=== PATIENT | female | born 1970 | race Two or more races ===

== ENCOUNTER 2024-12-20 11:56 | Inpatient (IN) | payer BC, OTHER ==
[~2024-12-20] VITALS: Ht 172.7 cm; Wt 92.5 kg
[2024-12-20 12:21] LABS: Hematocrit 42.6 % (36.0-46.0); Hemoglobin 14.5 g/dL (12.2-16.2); Mean Corpuscular Hemoglobin 30.3 pg (28.0-32.0); Mean Corpuscular Volume 88.7 fL (80.0-100.0); Nucleated Red Blood Cells % 0.1 %
--- NOTE | 2024-12-20 12:22 | ECG ---
[facility] Test Date: 2024-12-20 Test Time: 12:06:55 Pat Name: KRISTOPHER LEE Department: [facility] ED Room: [address] [place] [address] Gender: F Buyer Assistant: CASSANDRA : 1970 Requested By: DIVINE PAYTON Order Number: [id number] Reading MD: Serg Souza Measurements Intervals [place] Rate: 111 P: 0 [place]: 0 QRS: 82 QRSD: 79 T: 32 QT: 345 QTc: 469 Interpretive Statements Atrial fibrillation Borderline T abnormalities, anterior leads Electronically Signed On 12-20-2024 17:02:12 PDT by Serg Souza Please click the below link to view image of tracing.
[2024-12-20 12:27] LABS: Potassium 3.9 mmol/L (3.5-5.1); Sodium 143 mmol/L (136-145)
[2024-12-20 12:28] LABS: Anion Gap 12 (5-15); Carbon Dioxide 22 mmol/L (20-31)
[2024-12-20 12:29] LABS: Calcium 9.4 mg/dL (8.7-10.4)
[2024-12-20 12:31] LABS: Chloride 109 mmol/L (98-107)
[2024-12-20 12:33] LABS: BUN/Creatinine Ratio 17.6 (10.0-20.0); Blood Urea Nitrogen 15 mg/dL (9-23); Glucose 100 mg/dL (74-106)
--- NOTE | 2024-12-20 12:48 | DVH ---
CHEST RADIOGRAPH Indication: sob Technique: XY CHEST PORTABLE Comparison: None FINDINGS: The cardiac silhouette is unremarkable. The lungs demonstrate no pulmonary airspace consolidation. Th e pulmonary vasculature is unremarkable. There is no pleural effusion. There is no pneumothorax. IMPRESSION: No pulmonary airspace consolidation.
--- NOTE | 2024-12-20 12:56 | ED.PDOC ---
HPI Comments 54 y/o F, with PMHx of AFib, presents to the ED for CC of chest pain. Patient states, she has been experiencing substernal chest pain with associated palpitations x1day. Chief Complaint: Chest Pain Time Seen by MD: 12:05 Reviewed Notes: Nurses Notes, Medications, Allergies Allergies: Uncoded Allergies: CECILIOIENFransisco (Allergy, Unknown, 12/20/24) Information Source: Patient Mode of Arrival: Ambulatory Severity: Moderate Timing: Days Duration: Since onset Prehospital treatment: None Location: Substernal Radiation: No Radiation Onset: At Rest Cardiac Risk Factors: None PE Risk Factors: None History of: None Modifying Factors: Nothing Associated Signs and Symptoms: None Past Medical History PAST MEDICAL HISTORY: AFIB Surgical History: Denies all surgeries MARINE METEOROLOGIST History: Denies all MARINE METEOROLOGIST Hx Family History Family History: Unknown Social History Smoker: Non-Smoker Alcohol: Denies ETOH Use Drugs: Denies Drug Use Lives In: Home Constitutional: denies: chills, diaphoresis, fatigue, fever, malaise, sweats, weakness, others EENTM: denies: blurred vision, double vision, ear bleeding, ear discharge, ear drainage, ear pain, ear ringing, eye pain, eye redness, hearing loss, mouth pain, mouth swelling, nasal discharge, nose bleeding, nose congestion, nose pain, photophobia, tearing, throat pain, throat swelling, voice changes, others Respiratory: denies: cough, hemoptysis, orthopnea, SOB at rest, shortness of breath, SOB with excertion, stridor, wheezing, others Cardiovascular: reports: chest pain, palpitations; denies: dizzy spells, diaphoresis, Dyspnea on exertion, edema, irregular heart beat, left arm pain, lightheadedness, PND, syncope, others Gastrointestinal: denies: abdomen distended, abdominal pain, blood streaked bowels, constipated, diarrhea, dysphagia, difficulty swallowing, hematemesis, melena, nausea, poor appetite, poor fluid intake, rectal bleeding, rectal pain, vomiting, others Genitourinary: denies: abnormal vagina bleeding, burning, dyspareunia, dysuria, flank pain, frequency, hematuria, incontinence, pain, , vagina discharge, urgency, others Neurological: denies: dizziness, fainting, headache, left sided numbness, left sided weakness, numbness, paresthesia, pre-existing deficit, right sided numbness, right sided weakness, seizure, speech problems, tingling, tremors, weakness, others Musculoskeletal: denies: back pain, gout, joint pain, joint swelling, muscle pain, muscle stiffness, neck pain, others Integumetry: denies: bruises, change in color, change in hair/nails, dryness, laceration, lesions, lumps, rash, wounds, others Allergic/Immunocompromised: denies: Difficulty Healing, Frequent Infections, Hives, Itching, others Hematologic/Lymphatic: denies: anemia, blood clots, easy bleeding, easy bruising, swollen glands, others Endocrine: denies: excessive hunger, excessive sweating, excessive thirst, excessive urination, flushing, intolerance to cold, intolerance to heat, unexplained weight gain, unexplained weight loss, others Psychiatric: denies: anxiety, bipolar disorder, depression, hopeless, panic disorder, schizophrenia, sleepless, suicidal, others All Other Systems: Reviewed and Negative Physical Exam General Appearance: Moderate Distress HEENT: Normal ENT Inspection, Pharynx Normal, TMs Normal Neck: Full Range of Motion, Non-Tender, Normal, Normal Inspection Respiratory: Chest Non-Tender, Lungs Clear, No Accessory Muscle Use, No Res piratory Distress, Normal Breath Sounds Cardiovascular: Irregular Breast Exam: Deferred Gastrointestinal: No Organomegaly, Non Tender, No Pulsatile Mass, Normal Bowel Sounds, Soft Genitalia: Deferred Pelvic: Deferred Rectal: Deferred Extremities: No calf tenderness, Normal capillary refill, Normal inspection, Normal range of motion, Non-tender, No pedal edema Musculoskeletal : Apperance: Normal Neurologic: Alert, epic director II-XII nml as Tested, No Motor Deficits, Normal Affect, Normal Mood, No Sensory Deficits Cerebellar Function: NOT DONE Reflexes: NOT DONE Skin: Dry, Normal Color, Warm Peripheral Pulses: 3+ Radial (R), 3+ Radial (L) Lymphatic: No Adenopathy Was a procedure done? Was a procedure done?: No CP Differential Dx Differential Diagnosis: A-fib, A-Flutter, Angina, Anxiety / Panic Attack, Atrial Dysrhythmia, Electrolyte Disorder Differential Diagnosis: Angina, Chest Wall Pain, Costochondritis, Esophageal reflux/spasm, Gastritis X-Ray, Labs, Meds, VS Vital Signs Date Time Temp Pulse Resp B/P (MAP) Pulse Ox O2 Delivery O2 Flow Rate FiO2 12/20/24 15:12 108 18 146/82 12/20/24 14:45 108 20 146/82 (103) 97 12/20/24 12:42 114 12/20/24 12:06 111 12/20/24 11:56 98.3 121 18 150/150 97 98.3 Lab Test 12/20/24 13:01 12/20/24 12:12 Range/Units Troponin I High Sensitivity < 3 L 3 L </=34 ng/L White Blood Count 10.7 4.4-10.8 10^3/uL Red Blood Count 4.80 4.0-5.20 10^6/uL Hemoglobin 14.5 12.2-16.2 g/dL Hematocrit 42.6 36.0-46.0 % Mean Corpuscular Volume 88.7 80.0-100.0 fL Mean Corpuscular Hemoglobin 30.3 28.0-32.0 pg Mean Corpuscular Hemoglobin Concent 34.2 32.0-36.0 g/dL Red Cell Distribution Width 13.8 11.8-14.3 % Platelet Count 258 140-450 10^3/uL Mean Platelet Volume 7.9 6.9-10.8 fL Neutrophils (%) (Auto) 77.7 37.0-80.0 % Lymphocytes (%) (Auto) 14.1 10.0-50.0 % Monocytes (%) (Auto) 7.5 0.0-12.0 % Eosinophils (%) (Auto) 0.3 0.0-7.0 % Basophils (%) (Auto) 0.4 0.0-2.0 % Neutrophils # (Auto) 8.3 1.6-8.6 10 ^3/uL Lymphocytes # (Auto) 1.5 0.4-5.4 10 ^3/uL Monocytes # (Auto) 0.8 0-1.3 10 ^3/uL Eosinophils # (Auto) 0 0-0.8 10 ^3/uL Basophils # (Auto) 0 0-0.2 10 ^3/uL Nucleated Red Blood Cells 0.1 % Sodium Level 143 136-145 mmol/L Potassium Level 3.9 3.5-5.1 mmol/L Chloride Level 109 H 98-107 mmol/L Carbon Dioxide Level 22 20-31 mmol/L Anion Gap 12 5-15 Blood Urea Nitrogen 15 9-23 mg/dL Creatinine 0.85 0.550-1.02 mg/dL Glomerular Filtration Rate Calc 81 >90 mL/min BUN/Creatinine Ratio 17.6 10.0-20.0 Serum Glucose 100 74-106 mg/dL Calcium Level 9.4 8.7-10.4 mg/dL Current Medications Medications (Trade) Dose Ordered Sig/Alexa Route Start Time Stop Time Status Last Admin Diltiazem HCl (Cardizem Injection) 10 mg ONCE ONCE IV 12/20/24 14:30 12/20/24 14:39 DC 12/20/24 15:11 Morphine Sulfate 4 mg ONCE ONCE IV 12/20/24 15:15 12/20/24 15:16 DC 12/20/24 15:12 Ondansetron HCl (Zofran) 4 mg ONCE ONCE IV 12/20/24 15:15 12/20/24 15:16 DC 12/20/24 15:12 [place] [address] Ph: [phone] DIAGNOSTIC IMAGING Diagnostic Imaging Report : [id number] Signed PATIENT: MARIANA LEECCT: [id number] UNIT: [id number] : 1970 LOC: ER ROOM / BED: / AGE / SEX: 54 / F ADM STATUS: REG ER SERVICE 1213 ORDERING PHYSICIAN: DIVINE PAYTON MD PROCEDURE(s): CXRP - CHEST PORTABLE REASON: sob ORDER NUMBER(s): [id number], ACCESSION NUMBER(s): [id number] CHEST RADIOGRAPH Indication: sob Technique: XY CHEST PORTABLE Comparison: None FINDINGS: The cardiac silhouette is unremarkable. The lungs demonstrate no pulmonary airspace consolidation. The pulmonary vasculature is unremarkable. There is no pleural effusion. There is no pneumothorax. IMPRESSION: No pulmonary airspace consolidation. ATED BY: JUAN ANTONIO HOLLIS MD DICTATED DATE/TIME: 12/20/241248 SIGNED BY: JUAN ANTONIO HOLLIS MD SIGNED DATE/TIME: 12/20/24 124 CC: Patient alert. She does have irregular pulse. EKG shows atrial fibrillation. Vitals stable. Chest x-ray reviewed does not show any acute process. New onset. Continues to have chest pain. Cardiac marker within normal limits. WBC within normal limits. Explained to the patient. Continue monitoring. Time of 1ST Reevaluation: 12:35 Reevaluation 1ST: Unchanged Patient Education/Counseling: Diagnosis, Treatment Family Education/Counseling: No Family Present SEPSIS Sepsis Screen Physician Orders Chest Portable (12/20/24 12:13) Urinalysis (12/20/24 12:13) Electrocardigram (12/20/24 13:36) Electrocardigram (12/20/24 14:36) Diphenhdramine Injection (Benadryl Injec (12/20/24 15:30) Vital Signs Date Time Temp Pulse Resp B/P (MAP) Pulse Ox O2 Delivery O2 Flow Rate FiO2 12/20/24 15:12 108 18 146/82 12/20/24 14:45 108 20 146/82 (103) 97 12/20/24 12:42 114 12/20/24 12:06 111 12/20/24 11:56 98.3 121 18 150/150 97 98.3 Laboratory Tests Test 12/20/24 12:12 White Blood Count 10.7 10^3/uL (4.4-10.8) Medications Medications Dose Ordered Sig/Alexa Route Start Time Stop Time Status Last Admin Dose Admin Diltiazem HCl 10 mg ONCE ONCE IV 12/20/24 14:30 12/20/24 14:39 DC 12/20/24 15:11 Morphine Sulfate 4 mg ONCE ONCE IV 12/20/24 15:15 12/20/24 15:16 DC 12/20/24 15:12 Ondansetron HCl 4 mg ONCE ONCE IV 12/20/24 15:15 12/20/24 15:16 DC 12/20/24 15:12 Departure 1 Departure Time of Disposition: 13:19 Impression: Primary Impression: Atrial fibrillation Qualified Codes: I48.0 - Paroxysmal atrial fibrillation Disposition: ADMITTED INPATIENT Admit to: Med Surg Condition: Guarded Critical Care Note Critical Care Time?: Yes (90 min-critical care time only) Stability Stability form required: No Heart Score Heart Score: Heart Score Response (Comments) Value History Slightly Suspicious 0 EKG Normal 0 Age 45-64 1 Risk Factors >3 or Hx ASHD 2 Troponin Normal limit 0 Total 3 I personally scribed for FITO,DIVINE MD ([email or web address]) on 12/20/24 at 12:56. Electronically submitted by Marilia Ochoa ([email or web address]). I personally scribed for DIVINE PAYTON MD ([email or web address]) on 12/20/24 at 12:58. Electronically submitted by Marilia Ochoa ([email or web address]). I personally scribed for DIVINE PAYTON MD ([email or web address]) on 12/20/24 at 13:00. Electronically submitted by Marilia Ochoa ([email or web address]). I personally scribed for DIVINE PAYTON MD ([email or web address]) on 12/20/24 at 13:06. Electronically submitted by Marilia Ochoa ([email or web address]). I personally scribed for DIVINE PAYTON MD ([email or web address]) on 12/20/24 at 15:22. Electronically submitted by Carmelo Meyers ([email or web address]). DIVINE PAYTON MD Dec 20, 2024 12:56
[2024-12-20] MEDS: dilTIAZem 25 MG/5 ML VIAL IV ONE (15:11)
[2024-12-20] MEDS: ONDANSETRON HCL 4 MG/2 ML VIAL IV ONE ×2 (15:12→18:01)
[2024-12-20] MEDS: MORPHINE SULFATE 4 MG/ML SYR/VIAL IV ONE (15:12)
[2024-12-20] MEDS: diphenhdrAMINE HCL 50 MG/1 ML VL ONE (15:21)
[2024-12-20] MEDS: diphenhdrAMINE HCL 50 MG/1 ML VL IV ONE (15:21)
[2024-12-20] MEDS ORDERED: hydrALAZINE HCL 20 MG/ML VL IV PRN (16:00)
[2024-12-20] MEDS ORDERED: NITROGLYCERIN 0.4 MG SL TAB SL PRN (16:00)
[2024-12-20] MEDS ORDERED: MORPHINE SULFATE INJ 2 MG/ml SYRG IV PRN (16:00)
--- NOTE | 2024-12-20 16:08 | DVHHP2 ---
Admitting Diagnosis: cp History of Present Illness HPI 54 F who comes to ER c/o CP that started earlier this AM. She describes it as substernal along with palpitations. When she arrived to the ER she was noted to be in atrial fibrillation with RVR HR 110-120s. Patient does not take any rate control meds or anticoagulation at home although she states she has a hx of afib. She remained in afib rvr with HR fluctuating between 90-130. She will be admitted for amio gtt protocol and cardiology evaluation with echo. Her cardiac enzymes are negative. She denies any associated SOB, n/v, diarrhea or other symptoms. Past Medical History Cardiac: AFIB, Hyperlipidemia Review of Systems Constitutional: No symptom reported Eyes: No symptom reported Cardiovascular: Chest Pain, Palpitations Gastrointestinal: No symptom reported Musculoskeletal: No symptom reported Psychiatric: No symptom reported Endocrine: No symptom reported H&P Exam Vital Signs Vital Signs Date Time Temp Pulse Resp B/P (MAP) Pulse Ox O2 Delivery O2 Flow Rate FiO2 12/20/24 15:12 108 18 146/82 12/20/24 14:45 97 12/20/24 11:56 98.3 98.3 General Appeara: Well developed Head Exam: Normal inspection Neck Exam: Non-tender Pulmonary/Respiratory: Normal inspection, Normal breath sounds Cardiovascular/Chest: Tachycardia, Irregularly irregular SEPSIS Sepsis Screen Date sepsis recognized/suspect: Dec 20, 2024 Time Sepsis recognized/suspect: 1156 Recent Procedure: No On Antibiotic Therapy: No Respiratory Rate >20: No Heart Rate >90: Yes Temp<36 C (96.8 F) or >38.3 C: No SBP <90 or MAP <65 mmHG: No New Acute Mental Status Change: No Is the patient on CPAP, BIPAP,: No Physician Orders Chest Portable (12/20/24 12:13) Urinalysis (12/20/24 12:13) Electrocardigram (12/20/24 13:36) Electrocardigram (12/20/24 14:36) Admit (12/20/24 15:56) Nitroglycerin Sublingual (Ntrostat Subli (12/20/24 16:00) Morphine Sulfate Injection (12/20/24 16:00) Stat Ekg For Chest Pain (12/20/24 15:56) Notify Md Of Changes From Base (12/20/24 15:56) Medical Customer Service Representative For 24 Hours (12/20/24 15:56) Emergency Dysrhythmia Protocol (12/20/24 15:56) Rhythm Strips Once Every Shift (12/20/24 15:56) Oxygen By Nasal Cannula (12/20/24 15:56) Complete Blood Count (12/21/24 04:00) Basic Metabolic Panel (12/21/24 04:00) Sequential Compression Device (12/20/24 15:56) Echo 2d Mode Cardiac Dop (12/20/24 15:56) *Consult Dr.Mukeshchandra Parker (12/20/24 15:56) Amiodarone Bolus Kit (Cordarone) (12/20/24 16:00) Amiodarone 360mg/200ml Premix (Nexterone (12/20/24 16:15) Amiodarone 360mg/200ml Premix (Nexterone (12/20/24 22:15) Enoxaparin Sodium (Lovenox) (12/20/24 22:00) Ondansetron Hcl (Zofran) (12/20/24 18:00) Hydralazine Injection (Apresoline Inject (12/20/24 16:00) Cardiac Diet-2gna,Lofat,Lochol (12/20/24 Dinner) Vital Signs Date Time Temp Pulse Resp B/P (MAP) Pulse Ox O2 Delivery O2 Flow Rate FiO2 12/20/24 15:12 108 18 146/82 12/20/24 14:45 108 20 146/82 (103) 97 12/20/24 12:42 114 12/20/24 12:06 111 12/20/24 11:56 98.3 121 18 150/150 97 98.3 Laboratory Tests Test 12/20/24 12:12 White Blood Count 10.7 10^3/uL (4.4-10.8) Medications Medications Dose Ordered Sig/Alexa Route Start Time Stop Time Status Last Admin Dose Admin Diltiazem HCl 10 mg ONCE ONCE IV 12/20/24 14:30 12/20/24 14:39 DC 12/20/24 15:11 10 MG Diphenhydramine HCl 25 mg ONCE ONCE IV 12/20/24 15:30 12/20/24 15:31 DC 9/17/25 15:21 25 MG Morphine Sulfate 4 mg ONCE ONCE IV 12/20/24 15:15 12/20/24 15:16 DC 12/20/24 15:12 4 MG Ondansetron HCl 4 mg ONCE ONCE IV 12/20/24 15:15 12/20/24 15:16 DC 12/20/24 15:12 4 MG Labs/Xrays Labs Test 12/20/24 13:01 12/20/24 12:12 Range/Units Troponin I High Sensitivity < 3 L </=34 ng/L White Blood Count 10.7 4.4-10.8 10^3/uL Red Blood Count 4.80 4.0-5.20 10^6/uL Hemoglobin 14.5 12.2-16.2 g/dL Hematocrit 42.6 36.0-46.0 % Mean Corpuscular Volume 88.7 80.0-100.0 fL Mean Corpuscular Hemoglobin 30.3 28.0-32.0 pg Mean Corpuscular Hemoglobin Concent 34.2 32.0-36.0 g/dL Red Cell Distribution Width 13.8 11.8-14.3 % Platelet Count 258 140-450 10^3/uL Mean Platelet Volume 7.9 6.9-10.8 fL Neutrophils (%) (Auto) 77.7 37.0-80.0 % Lymphocytes (%) (Auto) 14.1 10.0-50.0 % Monocytes (%) (Auto) 7.5 0.0-12.0 % Eosinophils (%) (Auto) 0.3 0.0-7.0 % Basophils (%) (Auto) 0.4 0.0-2.0 % Neutrophils # (Auto) 8.3 1.6-8.6 10 ^3/uL Lymphocytes # (Auto) 1.5 0.4-5.4 10 ^3/uL Monocytes # (Auto) 0.8 0-1.3 10 ^3/uL Eosinophils # (Auto) 0 0-0.8 10 ^3/uL Basophils # (Auto) 0 0-0.2 10 ^3/uL Nucleated Red Blood Cells 0.1 % Sodium Level 143 136-145 mmol/L Potassium Level 3.9 3.5-5.1 mmol/L Chloride Level 109 H 98-107 mmol/L Carbon Dioxide Level 22 20-31 mmol/L Anion Gap 12 5-15 Blood Urea Nitrogen 15 9-23 mg/dL Creatinine 0.85 0.550-1.02 mg/dL Glomerular Filtration Rate Calc 81 >90 mL/min BUN/Creatinine Ratio 17.6 10.0-20.0 Serum Glucose 100 74-106 mg/dL Calcium Level 9.4 8.7-10.4 mg/dL Assessment/Plan Primary Diagnosis 1) Afib RVR 2) HLD plan; admit tele, amio gtt protocol, cardio consult with echo, cardiac diet, therapeutic lovenox BID, AM labs, supportive care,will follow along Plan discussed with: Other (n) YI TERRAZAS MD Dec 20, 2024 16:08
--- NOTE | 2024-12-20 16:50 | ECG ---
[facility] Test Date: 2024-12-20 Test Time: 12:42:05 Pat Name: KRISTOPHER LEE Department: [facility] ED Room: [address] [place] [address] Gender: F Violin Teacher: BRET : 1970 Requested By: DIVINE PAYTON Order Number: [id number] Reading MD: Serg Souza Measurements Intervals [place] Rate: 114 P: 0 PA: 0 QRS: 81 QRSD: 78 T: 30 QT: 319 QTc: 440 Interpretive Statements Atrial fibrillation Borderline T wave abnormalities Electronically Signed On 12-20-2024 17:02:17 PDT by Segr Souza Please click the below link to view image of tracing.
[2024-12-20 16:54] LABS: INR 0.96 (0.9-1.15); Prothrombin Time 10.2 sec (9.3-11.8)
[2024-12-20 17:00] VITALS: PULSE 116; RESP 18; O2SAT 99
[2024-12-20] MEDS: AMIODARONE BOLUS KIT 100 ML IV ONE (17:00)
[2024-12-20] MEDS: METOPROLOL TARTRATE 25 MG TAB PO ONE (17:33)
[2024-12-20] MEDS: ENOXAPARIN SOD 100 MG/1 ML SYRINGE SC ONE (17:33)
[2024-12-20] MEDS: AMIODARONE 360mg/200mL PREMIX 200 ML IV ONE (17:33)
[2024-12-20 19:30] VITALS: RESP 18; O2SAT 96
[2024-12-20 20:09] LABS: Urine Protein, UAD Negative (Negative)
[2024-12-20] MEDS: diphenhdrAMINE HCL 50 MG/1 ML VL IV PRN (20:10)
[2024-12-20] MEDS: MORPHINE SULFATE 4 MG/ML SYR/VIAL IV PRN (20:11)
[2024-12-20] MEDS: AMIODARONE 360mg/200mL PREMIX 200 ML IV SCH (22:25)
--- NOTE | 2024-12-20 23:57 | DVHINCON2 ---
Date of service: Dec 20, 2024 Referring Physician Lavern Reason for Consultation A-fib RVR History of Present Illness This is a 54 year old female with a PMH of A-fib who presented to the ED with complaints of substernal chest pain onset this morning. Patient reports associated heart palpitations. Upon ED arrival she was noted to be in atrial fibrillation with RVR HR 110-120s. Patient does not take any rate control meds o r anticoagulation at home. She remained in afib rvr with HR fluctuating between 90-130. Patient started on Amiodarone drip. Troponin is negative. Chest x-ray showed NAD. Patient was admitted to the hospital. I am asked to consult on this patient Allergies: Uncoded Allergies: CODIENE (Allergy, Unknown, 12/20/24) Current Medications Current Medications Medications (Trade) Dose Ordered Sig/Alexa Route PRN Reason Start Time Stop Time Status Last Admin Nitroglycerin (Ntrostat Sublingual) 0.4 mg Q5MINP PRN SL FOR CHEST PAIN 12/20/24 16:00 Morphine Sulfate 2 mg Q30M PRN IV FOR CHEST PAIN 12/20/24 16:00 Amiodarone HCL/ Dextrose 200 ml @ 16.66 mls/ hr Q12H IV 12/20/24 22:15 Enoxaparin Sodium (Lovenox) 90 mg Q12H SC 12/21/24 06:00 Hydralazine HCl (Apresoline Injection) 10 mg Q4HP PRN IV sbp >160 12/20/24 16:00 Diphenhydramine HCl (Benadryl Injection) 25 mg Q6HP PRN IV FOR ITCHING 12/20/24 17:45 12/20/24 20:10 Morphine Sulfate 4 mg Q6HPRN PRN IV FOR CHEST PAIN 12/20/24 17:45 12/20/24 20:11 Review of Systems Constitutional: denies: chills, diaphoresis, fatigue, fever, malaise, sweats, weakness, others EENTM: denies: blurred vision, double vision, ear bleeding, ear discharge, ear drainage, ear pain, ear ringing, eye pain, eye redness, hearing loss, mouth pain, mouth swelling, nasal discharge, nose bleeding, nose congestion, nose pain, photophobia, tearing, throat pain, throat swelling, voice changes, others Respiratory: denies: cough, hemoptysis, orthopnea, SOB at rest, shortness of breath, SOB with excertion, stridor, wheezing, others Cardiovascular: reports: chest pain, palpitations; denies: dizzy spells, diaphoresis, Dyspnea on exertion, edema, irregular heart beat, left arm pain, lightheadedness, PND, syncope, others Gastrointestinal: denies: abdomen distended, abdominal pain, blood streaked bowels, constipated, diarrhea, dysphagia, difficulty swallowing, hematemesis, melena, nausea, poor appetite, poor fluid intake, rectal bleeding, rectal pain, vomiting, others Genitourinary: denies: abnormal vagina bleeding, burning, dyspareunia, dysuria, flank pain, frequency, hematuria, incontinence, pain, , vagina discharge, urgency, others Neurological: denies: dizziness, fainting, headache, left sided numbness, left sided weakness, numbness, paresthesia, pre-existing deficit, right sided numbness, right sided weakness, seizure, speech problems, tingling, tremors, weakness, others Musculoskeletal: denies: back pain, gout, joint pain, joint swelling, muscle pain, muscle stiffness, neck pain, others Integumetry: denies: bruises, change in color, change in hair/nails, dryness, laceration, lesions, lumps, rash, wounds, others Allergic/Immunocompromised: denies: Difficulty Healing, Frequent Infections, Hives, Itching, others Hematologic/Lymphatic: denies: anemia, blood clots, easy bleeding, easy bruising, swollen glands, others Endocrine: denies: excessive hunger, excessive sweating, excessive thirst, excessive urination, flushing, intolerance to cold, intolerance to heat, unexplained weight gain, unexplained weight loss, others Psychiatric: denies: anxiety, bipolar disorder, depression, hopeless, panic disorder, schizophrenia, sleepless, suicidal, others All Other Systems: Reviewed and Negative Vital Signs Vital Signs Date Time Temp Pulse Resp B/P (MAP) Pulse Ox O2 Delivery O2 Flow Rate FiO2 12/20/24 20:11 78 18 133/81 12/20/24 20:00 96 12/20/24 18:07 Nasal Cannula* 2 28 12/20/24 11:56 98.3 98.3 Physical Exam GENERAL: Alert and oriented x 3. No acute distress. EYES: PERRL, EOMI. Anicteric. HENT: Moist mucous membranes. LUNGS: Clear to auscultation bilaterally. CARDIOVASCULAR: Irregular rate and rhythm. ABDOMEN: Soft, nontender and nondistended. EXTREMITIES: No edema. NEUROLOGIC: No focal neurological deficits. SKIN: Warm, dry. Labs/Diagnostic Data Labs Test 12/20/24 13:01 12/20/24 12:13 12/20/24 12:12 Range/Units Troponin I High Sensitivity < 3 L </=34 ng/L Urine Color Colorless Yellow Urine Clarity Clear Clear Urine pH 5.0 5.0-9.0 Urine Specific [place] 1.008 1.001-1.035 Urine Protein Negative Negative Urine Ketones Negative Negative Urine Blood Negative Negative /uL Urine Nitrite Negative Negative Urine Bilirubin Negative Negative Urine Urobilinogen Normal Negative mg/dL Urine Leukocyte Esterase Trace Negative /uL Urine RBC <1 0 - 4 /hpf Urine Microscopic WBC 3 0-5 /HPF Urine Squamous Epithelial Cells Few <5 /hpf Urine Bacteria None seen None Seen /hpf Urine Glucose Normal Normal mg/dL White Blood Count 10.7 4.4-10.8 10^3/uL Red Blood Count 4.80 4.0-5.20 10^6/uL Hemoglobin 14.5 12.2-16.2 g/dL Hematocrit 42.6 36.0-46.0 % Mean Corpuscular Volume 88.7 80.0-100.0 fL Mean Corpuscular Hemoglobin 30.3 28.0-32.0 pg Mean Corpuscular Hemoglobin Concent 34.2 32.0-36.0 g/dL Red Cell Distribution Width 13.8 11.8-14.3 % Platelet Count 258 140-450 10^3/uL Mean Platelet Volume 7.9 6.9-10.8 fL Neutrophils (%) (Auto) 77.7 37.0-80.0 % Lymphocytes (%) (Auto) 14.1 10.0-50.0 % Monocytes (%) (Auto) 7.5 0.0-12.0 % Eosinophils (%) (Auto) 0.3 0.0-7.0 % Basophils (%) (Auto) 0.4 0.0-2.0 % Neutrophils # (Auto) 8.3 1.6-8.6 10 ^3/uL Lymphocytes # (Auto) 1.5 0.4-5.4 10 ^3/uL Monocytes # (Auto) 0.8 0-1.3 10 ^3/uL Eosinophils # (Auto) 0 0-0.8 10 ^3/uL Basophils # (Auto) 0 0-0.2 10 ^3/uL Nucleated Red Blood Cells 0.1 % Prothrombin Time 10.2 9.3-11.8 sec Prothrombin Time INR 0.96 0.9-1.15 Sodium Level 143 136-145 mmol/L Potassium Level 3.9 3.5-5.1 mmol/L Chloride Level 109 H 98-107 mmol/L Carbon Dioxide Level 22 20-31 mmol/L Anion Gap 12 5-15 Blood Urea Nitrogen 15 9-23 mg/dL Creatinine 0.85 0.550-1.02 mg/dL Glomerular Filtration Rate Calc 81 >90 mL/min BUN/Creatinine Ratio 17.6 10.0-20.0 Serum Glucose 100 74-106 mg/dL Calcium Level 9.4 8.7-10.4 mg/dL Assessment Afib with RVR. HLD. Plan/Recommendation I agree with your ongoing assessment and care of plan. Echocardiogram. IV Amiodarone. DVT prophylactics. IV Hydralazine for SBP > 160. Morphine for pain management. Nitro SL. Additional plan as per the hospital course. A total of 45 minutes was spent reviewing the patient record, examining the patient, making a diagnostic and therapeutic plan, discussing this plan with medical personnel, following up on diagnostic studies and following the patient for clinical stability excluding any and all procedures. At least 50% of this time was spent in direct, [id number] contact. Plan discussed with: Patient SUMAN MANLEY MD Dec 20, 2024 20:43
[2024-12-21] MEDS: ENOXAPARIN SOD 100 MG/1 ML SYRINGE SC SCH (05:54)
[2024-12-21 06:47] LABS: Chloride 106 mmol/L (98-107); Potassium 3.5 mmol/L (3.5-5.1); Sodium 140 mmol/L (136-145)
[2024-12-21 06:48] LABS: Anion Gap 8 (5-15); Carbon Dioxide 26 mmol/L (20-31)
[2024-12-21 06:53] LABS: BUN/Creatinine Ratio 13.5 (10.0-20.0); Blood Urea Nitrogen 10 mg/dL (9-23); Calcium 8.7 mg/dL (8.7-10.4); Glucose 102 mg/dL (74-106)
[2024-12-21 06:56] LABS: Hematocrit 35.8 % (36.0-46.0); Hemoglobin 12.4 g/dL (12.2-16.2); Mean Corpuscular Hemoglobin 30.9 pg (28.0-32.0); Mean Corpuscular Volume 89.1 fL (80.0-100.0); Nucleated Red Blood Cells % 0.0 %
[2024-12-21 09:53] VITALS: PULSE 104; O2SAT 96
--- NOTE | 2024-12-21 14:31 | DVH ---
Procedure: CT CT ANGIO CHEST CONTRAST Reason for study/Clinical History: R/O PE Comparison Study: None Exam Date: 12/21/2024 01:[address] Angio Chest with Contrast TECHNIQUE: Multiple axial CT images of chest was performed following intravenous contrast administrat ion and coronal reformatting was performed. 3-D/MIP images were obtained. Radiation Dose : CTDI volume is 26.64 mGy. Dose-length product is 939.87 mGy*cm FINDINGS: Pulmonary Arteries: There are no filling defects within main, lobar, segmental and visualized subsegm ental branch pulmonary arteries. There is normal dimensional of main PA. Lungs: Small left pleural effusion. There is no pneumothorax or pneumomediastinum. Aorta and Vasculature: There is normal caliber of thoracic aorta without evidence of aortic dissecti on, intramural hematoma or aneurysm. Lymph Nodes: There is no significant intrathoracic or axillary lymphadenopathy on CT size criteria. Lower Neck: Visualized portions of the thyroid gland are unremarkable. Mediastinum: Cardiomegaly. There is no pericardial effusion. The esophagus is unremarkable. Musculoskeletal: No aggressive focal bony lesions, acute fractures or dislocation. Chest wall: Unremarkable Partially visualized upper abdomen is grossly unremarkable. IMPRESSION: No evidence of acute or chronic pulmonary embolism. Cardiomegaly with CHF. Small left pleural effusion. END IMPRESSION: All CT scans at this medical facility are performed using dose modulation techniques as appropriate t o a performed exam including the following: Automated exposure control was utilized; adjustment of th e MA and/or KV according to patient size; and use of iterative reconstruction technique.
--- NOTE | 2024-12-21 15:04 | DVHPN2 ---
Progress Note - Dictate Date Seen: Dec 21, 2024 Medical Necessity Reason Pt with a Central, PICC or Fol: No Subjective Patient continues to note chest pain worse with inspiration. She also complains of palpitations. vital signs Vital Sign Date Time Temp Pulse Resp B/P (MAP) Pulse Ox O2 Delivery O2 Flow Rate FiO2 12/21/24 12:00 84 12/21/24 09:36 17 129/86 12/21/24 06:00 98 12/20/24 22:00 98.3 98.3 12/20/24 19:30 Nasal Cannula* 2 28 Total Intake and Output 12/20/24 12/20/24 12/21/24 15:00 23:00 07:00 Intake Total 66.66 ml 133.28 ml Balance 66.66 ml 133.28 ml medications Current Medications Medications Dose Ordered Sig/Alexa Route Start Time Stop Time Status Last Admin Dose Admin Nitroglycerin 0.4 mg Q5MINP PRN SL 12/20/24 16:00 Morphine Sulfate 2 mg Q30M PRN IV 12/20/24 16:00 Amiodarone HCL/ Dextrose 200 ml @ 16.66 mls/ hr Q12H IV 12/20/24 22:15 12/21/24 09:08 16.66 MLS/HR Enoxaparin Sodium 90 mg Q12H SC 12/21/24 06:00 12/21/24 05:54 90 MG Hydralazine HCl 10 mg Q4HP PRN IV 12/20/24 16:00 Diphenhydramine HCl 25 mg Q6HP PRN IV 12/20/24 17:45 12/21/24 09:07 25 MG Morphine Sulfate 4 mg Q6HPRN PRN IV 12/20/24 17:45 12/21/24 09:06 4 MG objective General appearance: No acute distress Respiratory: Lungs clear to auscultation. No wheezing, crackles Cardiovascular: Irregular rate and rhythm, no murmurs. No edema Abdomen: Soft, nondistended, nontender, bowel sounds present MSK: Normal range of motion. Neuro: Alert, no neurological deficits Psych: Appropriate mood and affect. laboratory and microbiology Laboratory Tests 12/21/24 05:57 Test 12/21/24 05:57 Range/Units Serum Glucose 102 74-106 mg/dL Assessment/Plan 1. Atrial Fibrillation with RVR 2. Chest Pain Plan: - Cardiology consulted, Dr. Brown - TTE ordered. Pending results - CT angio ordered due to pleuritic chest pain. Negative for PE. Imaging suggests underlying CHF. - Continue amiodarone drip. Goal pulse of 90-1 time - Lovenox for anticoagulation. Will transition to Eliquis on discharge. Discussed risks and benefits of Eliquis with patient. - Troponins negative for chest pain. Will continue to monitor. - Daily CBC and BMP - Full code Plan discussed with: Patient, Spouse HERO HERNANDEZ Dec 21, 2024 15:04
[2024-12-21] MEDS: IOHEXOL 350 MG/ML 100ML IJ ONE (16:23)
[2024-12-21 20:00] VITALS: PULSE 92; PULSE 98; RESP 18; O2SAT 95
[2024-12-21 21:10] VITALS: BP 123/72; PULSE 84; RESP 19; TEMP 98.1; O2SAT 91
--- NOTE | 2024-12-21 22:11 | DVHPN2 ---
Progress Note - Dictate Date Seen: Dec 21, 2024 Medical Necessity Reason Pt with a Central, PICC or Fol: No Subjective Patient was seen and evaluated in follow up. Patient is complaining of chest pressure. Patient is on Amiodarone drip. TSH 5.22. Telemetry reviewed. vital signs Vital Sign Date Time Temp Pulse Resp B/P (MAP) Pulse Ox O2 Delivery O2 Flow Rate FiO2 12/21/24 09:36 89 17 129/86 12/21/24 06:00 98 12/20/24 22:00 98.3 98.3 12/20/24 19:30 Nasal Cannula* 2 28 Total Intake and Output 12/20/24 12/20/24 12/21/24 15:00 23:00 07:00 Intake Total 66.66 ml 133.28 ml Balance 66.66 ml 133.28 ml medications Current Medications Medications Dose Ordered Sig/Alexa Route Start Time Stop Time Status Last Admin Dose Admin Nitroglycerin 0.4 mg Q5MINP PRN SL 12/20/24 16:00 Morphine Sulfate 2 mg Q30M PRN IV 12/20/24 16:00 Amiodarone HCL/ Dextrose 200 ml @ 16.66 mls/ hr Q12H IV 12/20/24 22:15 12/21/24 09:08 16.66 MLS/HR Enoxaparin Sodium 90 mg Q12H SC 12/21/24 06:00 12/21/24 05:54 90 MG Hydralazine HCl 10 mg Q4HP PRN IV 12/20/24 16:00 Diphenhydramine HCl 25 mg Q6HP PRN IV 12/20/24 17:45 12/21/24 09:07 25 MG Morphine Sulfate 4 mg Q6HPRN PRN IV 12/20/24 17:45 12/21/24 09:06 4 MG objective GENERAL: Alert and oriented x 3. No acute distress. EYES: PERRL, EOMI. Anicteric. HENT: Moist mucous membranes. LUNGS: Clear to auscultation bilaterally. CARDIOVASCULAR: Irregular rate and rhythm. ABDOMEN: Soft, nontender and nondistended. EXTREMITIES: No edema. NEUROLOGIC: No focal neurological deficits. SKIN: Warm, dry. laboratory and microbiology Laboratory Tests 12/21/24 05:57 Test 12/21/24 05:57 Range/Units Serum Glucose 102 74-106 mg/dL Problem List Afib with RVR. HLD. Assessment/Plan Continued all current supportive medical care. IV Amiodarone. DVT prophylactics. IV Hydralazine for SBP > 160. Morphine for pain management. Nitro SL. Additional plan as per the hospital course. Plan discussed with: Patient SUMAN MANLEY MD Dec 21, 2024 11:39
--- NOTE | 2024-12-22 00:45 | DVHSR ---
APPROVED REPORT EXAM: Two-dimensional and M-mode echocardiogram with Doppler and color Doppler. Blood Pressure: 121/78 mmHg INDICATION Heart Failure RISK FACTORS Height: 5'8", Weight: 203 DIMENSIONS LVDd5.1 (3.8-5.7cm)LA (2D)4.6 (1.9-4.0cm)Aortic Root2.9 (2.0-3.7cm) LVDs3.7 (2.5-4.0cm)LA (MM) (1.9-4.0cm)Aortic Cusp Exc1.8 (1.5-2.0cm) EF (%) 45.0 (55-70%)Rt. Atrium4.7 (1.9-4.0cm)Asc. Aorta3.2 cm IVSd0.9 (0.7-1.1cm)RV (D)4.2 (1.8-2.4cm) PWd1.0 (0.7-1.1cm) Mitral Valve MitralMitral Stenosis E wave1.13m/sMV Mean GR.mmHg E/A ratio0.02D MVAcm2 Aortic Valve Aortic ValveAortic Stenosis V10.63m/Rocio Mean GR.3mmHg V21.08m/Rocio Peak GR.5mmHg LVOT Diameter2.1 (1.8-2.4cm)Doppler AVA2.02cm2 Pulmonic Valve V20.55m/s Tricuspid Valve TR Velocity2.09m/s [id number] Conclusion MODERATELY DILATED LV AND RV LV EF IS 25% AND IS MODERATELY REDUCED DILATED ALL CARDIAC CHAMBERS NORMAL VALVES NO EFFUSION
[2024-12-22 00:56] VITALS: BP_SYST 110; BP_SYST 111; BP_DIAS 80; BP_DIAS 81; PULSE 76; PULSE 84; RESP 20; TEMP 98; TEMP 98.2; O2SAT 94
[2024-12-22 05:24] VITALS: BP 119/87; PULSE 91; RESP 19; TEMP 98; O2SAT 94
[2024-12-22 08:00] VITALS: PULSE 90; RESP 18; O2SAT 96
[2024-12-22 09:00] VITALS: BP 126/88; PULSE 81; RESP 18; TEMP 98.3; O2SAT 96
[2024-12-22] MEDS ORDERED: AMIO200T13 PO (11:29)
[2024-12-22] MEDS ORDERED: APIX5TAB PO (11:29)
[2024-12-22] MEDS ORDERED: LOS25T PO (11:30)
[2024-12-22] MEDS ORDERED: METO25TA5 PO (11:32)
[2024-12-22] MEDS ORDERED: ATOR20TA50 PO (11:34)
[2024-12-22 12:03] VITALS: BP 126/88; PULSE 81; RESP 18; TEMP 98.3; O2SAT 96
[2024-12-22 13:00] VITALS: BP 136/95; PULSE 96; RESP 16; TEMP 97.9; O2SAT 97
--- NOTE | 2024-12-22 14:46 | DVHDS2 ---
Discharge Summary Date of Admission Dec 20, 2024 at 15:56 Date of Discharge: Dec 22, 2024 Labs/Diagnostic Data: Laboratory Results Test 12/21/24 13:43 12/21/24 05:57 12/20/24 13:01 12/20/24 12:13 D-Dimer, Quantitative 0.28 mg/L FEU (0.0-0.49) White Blood Count 5.9 10^3/uL (4.4-10.8) Red Blood Count 4.02 10^6/uL (4.0-5.20) Hemoglobin 12.4 g/dL (12.2-16.2) Hematocrit 35.8 % (36.0-46.0) Mean Corpuscular Volume 89.1 fL (80.0-100.0) Mean Corpuscular Hemoglobin 30.9 pg (28.0-32.0) Mean Corpuscular Hemoglobin Concent 34.7 g/dL (32.0-36.0) Red Cell Distribution Width 13.9 % (11.8-14.3) Platelet Count 201 10^3/uL (140-450) Mean Platelet Volume 8.2 fL (6.9-10.8) Neutrophils (%) (Auto) 59.9 % (37.0-80.0) Lymphocytes (%) (Auto) 30.7 % (10.0-50.0) Monocytes (%) (Auto) 7.3 % (0.0-12.0) Eosinophils (%) (Auto) 1.8 % (0.0-7.0) Basophils (%) (Auto) 0.3 % (0.0-2.0) Neutrophils # (Auto) 3.5 10 ^3/uL (1.6-8.6) Lymphocytes # (Auto) 1.8 10 ^3/uL (0.4-5.4) Monocytes # (Auto) 0.4 10 ^3/uL (0-1.3) Eosinophils # (Auto) 0.1 10 ^3/uL (0-0.8) Basophils # (Auto) 0 10 ^3/uL (0-0.2) Nucleated Red Blood Cells 0.0 % Sodium Level 140 mmol/L (136-145) Potassium Level 3.5 mmol/L (3.5-5.1) Chloride Level 106 mmol/L (98-107) Carbon Dioxide Level 26 mmol/L (20-31) Anion Gap 8 (5-15) Blood Urea Nitrogen 10 mg/dL (9-23) Creatinine 0.74 mg/dL (0.550-1.02) Glomerular Filtration Rate Calc 95 mL/min (>90) BUN/Creatinine Ratio 13.5 (10.0-20.0) Serum Glucose 102 mg/dL (74-106) Calcium Level 8.7 mg/dL (8.7-10.4) Thyroid Stimulating Hormone (TSH) 5.22 uIU/mL (0.55-4.78) Troponin I High Sensitivity < 3 ng/L (</=34) Urine Color Colorless (Yellow) Urine Clarity Clear (Clear) Urine pH 5.0 (5.0-9.0) Urine Specific [place] 1.008 (1.001-1.035) Urine Protein Negative (Negative) Urine Ketones Negative (Negative) Urine Blood Negative /uL (Negative) Urine Nitrite Negative (Negative) Urine Bilirubin Negative (Negative) Urine Urobilinogen Normal mg/dL (Negative) Urine Leukocyte Esterase Trace /uL (Negative) Urine RBC <1 /hpf (0 - 4) Urine Microscopic WBC 3 /HPF (0-5) Urine Squamous Epithelial Cells Few /hpf (<5) Urine Bacteria None seen /hpf (None Seen) Urine Glucose Normal mg/dL (Normal) Test 12/20/24 12:12 Prothrombin Time 10.2 sec (9.3-11.8) Prothrombin Time INR 0.96 (0.9-1.15) Other Laboratory Tests 12/21/24 05:57 Brief Hx & Hospital Course: Patient is a 54-year-old female with past medical history of hypertension who presents with complaints of palpitations. Patient was found to be in atrial fibrillation with RVR. Patient was started on amiodarone drip. Cardiology was consulted. Patient was subsequently converted to p.o. amiodarone. She is continue taking amiodarone 400 mg once daily for 7 days followed by 200 mg once daily thereafter. Patient was discharged on Eliquis for CVA reduction and counseled on the risks and benefits of Eliquis. Patient underwent TTE which showed LVEF of 25%. No lower extreme edema was noted. This finding was discussed with cardiology and recommended outpatient left heart cath. Troponin was nonelevated. CT angio of the chest was done due to patient complaining of chest pain that is worse with inspiration. This was negative for PE. Again, the discussion of chest pain is brought up with cardiology who noted patient was cleared for discharge and can follow-up outpatient. Patient was discharged on metoprolol, losartan and atorvastatin. She will be scheduled for outpatient left heart cath. [facility] case management arrange follow-up appointments. Condition at Discharge: Good Final Diagnosis/Problems List Atrial Fibrillation with RVR New onset heart failure Secondary Diagnosis: CHF with reduced systolic function-Acute Hypertension Discharge Disposition: Home Discharge Instruct/Medications Diet: Cardiac 2g Na,low cholest Activity: No Restrictions, As Tolerated Follow Up/Referral: Follow up with cardiology for outpatient left heart cath. Medications: Amioadarone, losartan, eliquis, metoprolol, atorvastatin Scheduled Amiodarone HCl (Amiodarone HCl), 200 MG PO DAILY Apixaban Base (Eliquis), 5 MG PO BID Atorvastatin Calcium (Atorvastatin Calcium), 1 TAB PO DAILY Losartan Potassium (Losartan Potassium), 25 MG PO DAILY Metoprolol Tartrate (Metoprolol Tartrate), 0.5 TAB PO BID Discharge Statement: "Patient was advised to return to the ER or call 911 if any headaches, dizziness, shortness of breath, chest pain, abdominal pain, bleeding, fevers, or worsening of medical condition. Patient was counseled about treatment plan, medications, possible side effects, patientverbalized understanding. All questions were answered to the best of my ability. This discharge took greater then 30 minutes in planning, reviewing documentation, counseling the patient, and discussing with other team members." ASSESSMENT ASSESSMENT Assessment Atrial Fibrillation with RVR New onset heart failure HERO HERNANDEZ DO Dec 22, 2024 14:46
--- NOTE | 2024-12-22 22:37 | DVHPN2 ---
Progress Note - Dictate Date Seen: Dec 22, 2024 Medical Necessity Reason Pt with a Central, PICC or Fol: No Subjective Patient was seen and evaluated in follow up. No overnight events. Echocardiogram showed an EF of 25%. CTA Chest showed cardiomegaly with CHF with a small left pleural effusion. Telemetry reviewed. vital signs Vital Sign Date Time Temp Pulse Resp B/P (MAP) Pulse Ox O2 Delivery O2 Flow Rate FiO2 12/22/24 12:03 98.3 81 18 96 12/22/24 09:00 126/88 (101) 12/22/24 08:00 Room Air* 0 21 Total Intake and Output 12/21/24 12/21/24 12/22/24 15:00 23:00 07:00 Intake Total 16.66 ml Balance 16.66 ml medications Current Medications Medications Dose Ordered Sig/Alexa Route Start Time Stop Time Status Last Admin Dose Admin Nitroglycerin 0.4 mg Q5MINP PRN SL 12/20/24 16:00 Morphine Sulfate 2 mg Q30M PRN IV 12/20/24 16:00 Amiodarone HCL/ Dextrose 200 ml @ 16.66 mls/ hr Q12H IV 12/20/24 22:15 12/22/24 10:15 16.66 MLS/HR Enoxaparin Sodium 90 mg Q12H SC 12/21/24 06:00 12/22/24 05:19 90 MG Hydralazine HCl 10 mg Q4HP PRN IV 12/20/24 16:00 Diphenhydramine HCl 25 mg Q6HP PRN IV 12/20/24 17:45 12/21/24 18:43 25 MG Morphine Sulfate 4 mg Q6HPRN PRN IV 12/20/24 17:45 12/21/24 18:43 4 MG objective GENERAL: Alert and oriented x 3. No acute distress. EYES: PERRL, EOMI. Anicteric. HENT: Moist mucous membranes. LUNGS: Clear to auscultation bilaterally. CARDIOVASCULAR: Irregular rate and rhythm. ABDOMEN: Soft, nontender and nondistended. EXTREMITIES: No edema. NEUROLOGIC: No focal neurological deficits. SKIN: Warm, dry. laboratory and microbiology Laboratory Tests 12/21/24 05:57 Test 12/21/24 05:57 Range/Units Serum Glucose 102 74-106 mg/dL Problem List Afib with RVR. HLD. Assessment/Plan Continued all current supportive medical care. IV Amiodarone. DVT prophylactics. IV Hydralazine for SBP > 160. Morphine for pain management. Nitro SL. Additional plan as per the hospital course. Plan discussed with: Patient SUMAN MANLEY MD Dec 22, 2024 12:49
== END 2024-12-22 14:20 | disposition home or self-care (01) | DRG 309 ==
LOC: ER 11:56 → OVERFLOW 15:56 → TELE-WESTW 12-21 16:46
PROVIDERS: ADMIT Internal Medicine; ATTEND Internal Medicine
DX: I48.91 Unspecified atrial fibrillation (principal); I50.20 Unspecified systolic (congestive) heart failure; E78.5 Hyperlipidemia, unspecified; I11.0 Hypertensive heart disease with heart failure; Z79.899 Other long term (current) drug therapy; Z79.01 Long term (current) use of anticoagulants; Z88.5 Allergy status to narcotic agent
CPT/HCPCS: 36415; 71045; 71275; 80048; 81001; 84443; 84484; 85025; 85379; 85610; 87081; 93005; 93306; 96365; 96375; 99291; 99292; G0378; J2405